=== PATIENT | female | born 1955 | race Caucasian/White ===

== ENCOUNTER 2016-04-18 11:53 | Emergency (ER) | payer BC ==
[2016-04-18 12:19] VITALS: BP 124/67
--- NOTE | 2016-04-18 12:59 | UC ---
Throat Pain/Nasal Bry HPI - HPI Summary HPI Summary: complaint of cough and chills started 4 days ago woke up the 3rd day with fever and body /muscle aches for the last 2 days nasal congestion and cough cough is slight productive took an organic cough syrup with some relief denies shortness of breath denies N/V/D took some advil with relief of achiness - History of Current Complaint Chief Complaint: UCGeneralIllness Stated Complaint: FEVER COUGH Time Seen by Provider: 04/18/16 12:27 Hx Obtained From: Patient - Allergies/Home Medications Allergies/Adverse Reactions: Allergies Allergy/AdvReac Type Severity Reaction Status Date / Time Bacitracin [From Neosporin] Allergy Rash Verified 09/26/13 11:25 Neomycin [From Neosporin] Allergy Rash Verified 09/26/13 11:25 Polymyxin B [From Neosporin] Allergy Rash Verified 09/26/13 11:25 PMH/Surg Hx/FS Hx/Imm Hx Previously Healthy: Yes - Surgical History Surgical History: None - Family History Known Family History: Negative: Cardiac Disease, Hypertension, Diabetes - Social History Occupation: Employed Full-time Lives: With Family Alcohol Use: Weekly Alcohol Amount: One glass per week Substance Use Type: None Smoking Status (MU): Never Smoked Tobacco Have You Smoked in the Last Year: No Review of Systems Constitutional: Fever, Chills, Fatigue Skin: Negative Eyes: Negative ENT: Nasal Discharge Respiratory: Cough Cardiovascular: Negative Gastrointestinal: Negative Genitourinary: Negative Motor: Negative Neurovascular: Negative Musculoskeletal: Negative Neurological: Negative Psychological: Negative All Other Systems Reviewed And Are Negative: Yes Physical Exam Triage Information Reviewed: Yes Appearance: No Pain Distress, Well-Nourished Vital Signs: Initial Vital Signs Temp 98.1 F 04/18/16 12:13 Pulse 83 04/18/16 12:13 Resp 18 04/18/16 12:13 BP 124/67 04/18/16 12:13 Pulse Ox 98 04/18/16 12:13 Vital Signs Reviewed: Yes Eyes: Positive: Conjunctiva Clear ENT: Positive: Pharyngeal erythema, Nasal congestion, Nasal drainage, TMs normal. Negative: Tonsillar swelling, Tonsillar exudate Neck: Positive: Supple, No Lymphadenopathy Respiratory: Positive: Lungs clear, Normal breath sounds, No respiratory distress Cardiovascular: Positive: RRR, No Murmur, Pulses Normal Abdomen Description: Positive: Nontender, Soft Bowel Sounds: Positive: Present Musculoskeletal: Positive: No Edema Neurological: Positive: Alert Psychological Exam: Normal Skin Exam: Normal Throat Pain/Nasal Course/Dx - Differential Dx/Diagnosis Differential Diagnosis/HQI/PQRI: Influenza, URI, Other - bronchitis Provider Diagnoses: influenza Discharge - Discharge Plan Condition: Stable Disposition: HOME Patient Education Materials: Influenza (ED) Referrals: Jenny Doherty MD [Primary Care Provider] - Additional Instructions: TREATING THE FLU (Influenza) What is the Flu? Influenza, or "flu," is an infection of the breathing tubes and lungs. Flu happens mostly in late fall, winter, or early spring. It is very easily spread from one person to another by coughing and sneezing. The flu affects people of all ages. Symptoms Might Include: Stuffed up or runny nose Cough which may be worse at night that lasts for one to two weeks Fever especially the first 2 days and which may go up and down Headache and muscle aches Mild sore throat Poor appetite Tiredness Influenza (Flu) Vaccine Much of the illness and caused by influenza can be prevented by annual flu vaccination. It is especially recommended for people who are at high risk. Those at higher risk include all people aged 65 years or older and people of any age with chronic diseases of the heart, lung or kidneys, diabetes, immunosuppression, or severe forms of anemia. Other high-risk groups are, women who will be more than 3 months during the flu season, and children. Treatment Recommendations: Take acetaminophen (Tylenol, etc.) for aches and fever. Do not ever give aspirin to children. Drink lots of fluids. Use a cool-mist humidifier night and day if it helps you. Keep room at a comfortable temperature for you. Do not overheat the room. Do not overdress. Do not smoke. Get as much rest as you can. Call Your Doctor or Return Here IF: You have a fever that lasts for more than three days. You have trouble breathing. You begin to cough up green, yellow, or red mucous. Your cough gets worse or you have chest pain with coughing or deep breathing. You start to have any other symptoms that worry you.
== END 2016-04-18 14:07 | disposition home or self-care (01) ==
LOC: UCEAST 11:53
DX: J11.1 Influenza due to unidentified influenza virus with other respiratory manifestations (principal)
CPT/HCPCS: 87502; 99211; G0463